=== PATIENT | female | born 1990 | race Caucasian/White ===

== ENCOUNTER 2017-07-08 17:07 | Emergency (ER) | payer MEDICAID ==
[2017-07-08 17:30] VITALS: BP 122/72
== END 2017-07-08 19:43 | disposition home or self-care (01) ==
LOC: ED 17:07
DX: S61.212A Laceration without foreign body of right middle finger without damage to nail, initial encounter (principal); S60.221A Contusion of right hand, initial encounter; W22.8XXA Striking against or struck by other objects, initial encounter; Y93.89 Activity, other specified; Y99.8 Other external cause status; Y92.89 Other specified places as the place of occurrence of the external cause
CPT/HCPCS: 90715; J1885; J2001

== ENCOUNTER 2017-08-05 22:04 | Emergency (ER) | payer MEDICAID ==
[2017-08-06 00:21] VITALS: BP 122/68
== END 2017-08-06 00:21 | disposition home or self-care (01) ==
LOC: ED 22:04
DX: L50.9 Urticaria, unspecified (principal)
CPT/HCPCS: J7512

== ENCOUNTER 2018-01-21 16:54 | Emergency (ER) | payer MEDICAID ==
[~2018-01-21] VITALS: Ht 170.2 cm; Wt 82.5 kg
[2018-01-21 17:37] VITALS: Ht 170.2 cm; Wt 82.5 kg
[2018-01-21 19:30] VITALS: BP 130/71
== END 2018-01-21 19:43 | disposition home or self-care (01) ==
LOC: ED 16:54
DX: J33.9 Nasal polyp, unspecified (principal); R05 Cough; R09.89 Other specified symptoms and signs involving the circulatory and respiratory systems; M79.1 Myalgia; R50.9 Fever, unspecified

== ENCOUNTER 2018-07-31 19:26 | Emergency (ER) | payer MEDICAID ==
[2018-07-31 20:35] LABS: BASOPHIL % 0.4 % (0-2); PLATELET COUNT 217 x10^3mcL (130-400); RED CELL DISTRIBUTION WIDTH 12.8 % (11.5-14.5)
[2018-07-31 20:51] LABS: microscopic required? YES; urine erythrocyte 1+ (NEGATIVE)
[2018-07-31 20:53] LABS: CALCIUM 8.3 mg/dL (8.5-10.1); CARBON DIOXIDE 25.9 mmol/L (21-32); CHLORIDE SERUM 104 mmol/L (98-107); CREATININE SERUM 0.9 mg/dL (0.6-1.0); GFR1 > 60 mL/min; GLUCOSE SERUM 104 mg/dL (74-106); POTASSIUM SERUM 3.3 mmol/L (3.5-5.1); SODIUM SERUM 137 mmol/L (136-145)
[2018-07-31 20:58] LABS: ALBUMIN 3.3 g/dL (3.4-5.0); ALKALINE PHOSPHATASE 73 U/L (46-116); ALT/SGPT 21 U/L (14-59); AST/SGOT 17 U/L (15-37); BILIRUBIN TOTAL 0.25 mg/dL (0.20-1.00); LIPASE 88 IU/L (73-393); TOTAL PROTEIN, SERUM 7.1 g/dL (6.4-8.2)
[2018-07-31 21:57] VITALS: BP 95/59
== END 2018-07-31 21:57 | disposition home or self-care (01) ==
LOC: ED 19:26
PROVIDERS: Emergency Medicine
DX: A08.4 Viral intestinal infection, unspecified (principal)
CPT/HCPCS: J7030